=== PATIENT | female | born 1960 | race Two or more races ===

== ENCOUNTER 2020-06-25 11:15 | Inpatient (IN) | payer OTHER ==
[~2020-06-25] VITALS: Ht 160 cm; Wt 79.4 kg
[2020-06-25] MEDS ORDERED: GRALISE600 MG PO (14:08)
[2020-06-25] MEDS ORDERED: LEVOTHYROXINE25 MCG PO (14:08)
[2020-06-25] MEDS ORDERED: GABAPENT PO (14:09)
[2020-06-25] MEDS ORDERED: PROBIOTIC PO (14:09)
[2020-07-02] MEDS ORDERED: ATARAX25 MG (11:23)
[2020-07-02] MEDS ORDERED: DULOXETINE HCL20 MG (11:23)
[2020-07-02] MEDS ORDERED: GABAPENTIN100 M2 (11:24)
[2020-07-02] MEDS ORDERED: PROBIOTIC1 EAC2 (11:24)
[2020-07-02] MEDS ORDERED: MELOXICAM15 MG (11:24)
[2020-07-02] MEDS ORDERED: OMEPRAZOLE40 MG (11:24)
[2020-07-05] MEDS ORDERED: HYOSCYAMINE0.125 M1 SL (11:08)
[2020-07-05] MEDS ORDERED: PERCOCET 5-3251 EACH PO (11:08)
[2020-07-05] MEDS ORDERED: INTESTINEX680 M1 PO (11:09)
[2020-07-05] MEDS ORDERED: NEURONTIN300 MG PO (11:09)
== END 2020-07-05 12:26 | disposition home or self-care (01) | DRG 331 ==
LOC: O/R 07-02 06:34 → SURG 07-02 06:34 → SURH 07-02 10:30 → SURG 07-05 12:26
PROVIDERS: ADMIT Colon & Rectal Surgery; ATTEND Colon & Rectal Surgery
PROC: 0DTN4ZZ Resection of Sigmoid Colon, Percutaneous Endoscopic Approach (ICD-10-PCS; 2020-07-02)
PROC: 3E0F7SF Introduction of Other Gas into Respiratory Tract, Via Natural or Artificial Opening (ICD-10-PCS; 2020-07-02)
PROC: 3E0F7GC Introduction of Other Therapeutic Substance into Respiratory Tract, Via Natural or Artificial Opening (ICD-10-PCS; 2020-07-02)
PROC: 0DTP4ZZ Resection of Rectum, Percutaneous Endoscopic Approach (ICD-10-PCS; principal; 2020-07-02 10:30)
DX: K57.32 Diverticulitis of large intestine without perforation or abscess without bleeding (principal); J45.20 Mild intermittent asthma, uncomplicated; E03.8 Other specified hypothyroidism; G43.909 Migraine, unspecified, not intractable, without status migrainosus; D64.9 Anemia, unspecified